=== PATIENT | male | born 1955 ===

== ENCOUNTER 2024-07-07 10:44 | Inpatient (IN) | payer OTHER ==
[2024-07-07] MEDS ORDERED: Iopamidol 370 76% 100 ML VIAL ONE (11:12)
[2024-07-07 11:24] LABS: #Basophils 0.05 10x3/uL (0.0-0.2); %Basophils 0.9 % (0.0-1.0); %Lymphocytes 25.4 % (21.0-51.0); %Neutrophils 50.5 % (42.0-75.0); Hematocrit 37.8 % (42.0-52.0); Hemoglobin 12.5 g/dL (14.0-18.0); Mean Corpuscular HGB CONC 33.1 g/dL (32.0-36.0); Mean Corpuscular Hemoglobin 30.9 pg (27.0-31.0); Mean Corpuscular Volume 93.3 fL (78.0-98.0); Mean Platelet Volume 8.4 fL (7.4-10.4); Platelet Count 233 10x3/uL (130-400); RBC Distribution Width 13.8 % (11.5-14.5); Red Blood Cell (RBC) Count 4.05 mill/uL (4.70-6.10)
[2024-07-07] MEDS ORDERED: Aspirin Chewable 81 MG TAB ONE (11:44)
[2024-07-07 11:47] LABS: Troponin I Less than 0.010 ng/mL (< 0.028)
[2024-07-07 11:49] LABS: ALT (SGPT) 10 U/L (Less than 45); AST (SGOT) 19 U/L (11-34); Albumin 2.8 g/dL (3.1-4.5); Alkaline Phosphatase 75 U/L (40-110); Anion Gap 11 mmol/L (10-20); BUN (Urea Nitrogen) 21 mg/dL (8.4-25.7); Bilirubin, Total 0.3 mg/dL (0.3-1.2); Calc. Creatinine Clearance 0 mL/min (70-130); Carbon Dioxide 27 mmol/L (23-31); Chloride 103 mmol/L (98-107); Estimated GFR 100; Globulin 4.6 g/dL (2.4-3.5); Glucose 116 mg/dL (83-110); Lipase 160 U/L (8-78); Potassium 4.6 mmol/L (3.5-5.1); Protein, Total 7.4 g/dL (5.8-8.1); Sodium 136 mmol/L (136-145)
[2024-07-07] MEDS ORDERED: Cefepime 1 GM VIAL ONE (12:43)
[2024-07-07] MEDS ORDERED: Vancomycin 1 GM/200 ML (FROZEN) BAG ONE (12:43)
[2024-07-07] MEDS ORDERED: Sodium Chloride 0.9% 100 ML ONE (12:43)
[2024-07-07] MEDS ORDERED: Lidocaine 1% w/Epinephrine 1:100K 20 ML VIAL ONE (12:52)
[2024-07-07] MEDS ORDERED: Ondansetron PF 4 MG/2 ML Vial IVP PRN (14:04)
[2024-07-07] MEDS ORDERED: Ipratropium/Albuterol 3 ML NEB NEB PRN (14:13)
[2024-07-07] MEDS ORDERED: Ipratropium/Albuterol 3 ML NEB ONE (15:51)
[2024-07-07] MEDS ORDERED: Promethazine HCl 25 MG/ML VIAL IM PRN (16:18)
[2024-07-07] MEDS: Cefepime 1 GM in Sodium Chloride 0.9% 100 ML IVPB SCH (22:09)
[2024-07-07] MEDS: Famotidine 20 MG TAB PO SCH (22:10)
[2024-07-08 05:25] LABS: #Basophils 0.06 10x3/uL (0.0-0.2); %Basophils 0.8 % (0.0-1.0); %Eosinophils 2.6 % (0.0-10.0); %Lymphocytes 18.4 % (21.0-51.0); %Monocytes 11.2 % (0.0-10.0); %Neutrophils 66.7 % (42.0-75.0); Hematocrit 37.5 % (42.0-52.0); Hemoglobin 12.2 g/dL (14.0-18.0); Mean Corpuscular HGB CONC 32.5 g/dL (32.0-36.0); Mean Corpuscular Hemoglobin 30.4 pg (27.0-31.0); Mean Corpuscular Volume 93.5 fL (78.0-98.0); Mean Platelet Volume 8.7 fL (7.4-10.4); Platelet Count 251 10x3/uL (130-400); RBC Distribution Width 13.6 % (11.5-14.5); Red Blood Cell (RBC) Count 4.01 mill/uL (4.70-6.10)
[2024-07-08 05:47] LABS: Anion Gap 14 mmol/L (10-20); BUN (Urea Nitrogen) 18 mg/dL (8.4-25.7); Calc. Creatinine Clearance 0 mL/min (70-130); Carbon Dioxide 22 mmol/L (23-31); Chloride 103 mmol/L (98-107); Estimated GFR 105; Glucose 77 mg/dL (83-110); Potassium 4.3 mmol/L (3.5-5.1); Sodium 135 mmol/L (136-145)
[2024-07-08 08:02] VITALS: BMI 17.2
[2024-07-08] MEDS: LevoFLOXacin 500 mg/D5W 500 MG in Premix 1 BAG IVPB SCH (09:35)
[2024-07-08] MEDS: Ketorolac Tromethamine 30 MG (1 mL) VIAL IVP PRN (09:40)
[2024-07-08] MEDS: Enoxaparin 40 MG (0.4 mL) SYRINGE SC SCH (09:40)
[2024-07-08] MEDS: guaiFENesin ER 600 MG TAB PO SCH ×2 (09:57→21:42)
[2024-07-08] MEDS: Vancomycin 1.5 GRAM/300 ML BAG 1.5 GM in Premix 1 BAG IVPB SCH ×2 (11:14→23:13)
[2024-07-08] MEDS: Ipratropium/Albuterol 3 ML NEB NEB SCH ×2 (11:19→11:28)
[2024-07-08 12:32] VITALS: BMI 17.2
[2024-07-08] MEDS: Polyvinyl Alcohol 1.4%/Povidone 0.6% Opth Drops EA EYE SCH (19:03)
[2024-07-09 05:47] LABS: Vancomycin, Random 24.2 ug/mL (See Comment)
[2024-07-09] MEDS: Vancomycin 1 GM in Premix 1 BAG IVPB SCH (11:32)
[2024-07-09] MEDS: Cefepime 2 GM in Sodium Chloride 0.9% 100 ML IVPB SCH (16:29)
[2024-07-10] MEDS: Acetaminophen 325 MG TAB PO PRN (05:00)
[2024-07-10 05:58] LABS: Vancomycin, Random 26.8 ug/mL (See Comment)
[2024-07-10] MEDS: Ipratropium/Albuterol 3 ML NEB NEB PRN (18:20)
[2024-07-10] MEDS: traMADol HCl 50 MG TAB PO PRN (20:13)
[2024-07-10] MEDS ORDERED: Vancomycin (BATCH) 1.75 GM in Premix 1 BAG IVPB SCH (23:00)
[2024-07-11] MEDS: Cefepime 2 GM VIAL ONE (08:36)
[2024-07-11 09:28] LABS: #Basophils 0.04 10x3/uL (0.0-0.2); %Basophils 0.6 % (0.0-1.0); %Eosinophils 10.2 % (0.0-10.0); %Lymphocytes 17.7 % (21.0-51.0); %Monocytes 9.7 % (0.0-10.0); %Neutrophils 61.6 % (42.0-75.0); Hematocrit 35.6 % (42.0-52.0); Hemoglobin 11.7 g/dL (14.0-18.0); Mean Corpuscular HGB CONC 32.9 g/dL (32.0-36.0); Mean Corpuscular Hemoglobin 30.8 pg (27.0-31.0); Mean Corpuscular Volume 93.7 fL (78.0-98.0); Mean Platelet Volume 8.5 fL (7.4-10.4); Platelet Count 241 10x3/uL (130-400); RBC Distribution Width 13.7 % (11.5-14.5)
[2024-07-11 09:52] LABS: Anion Gap 10 mmol/L (10-20); BUN (Urea Nitrogen) 12 mg/dL (8.4-25.7); Calc. Creatinine Clearance 106 mL/min (70-130); Calcium 8.9 mg/dL (7.8-10.44); Carbon Dioxide 28 mmol/L (23-31); Chloride 104 mmol/L (98-107); Estimated GFR 106; Glucose 138 mg/dL (83-110); Sodium 138 mmol/L (136-145)
[2024-07-11 11:31] VITALS: BP 110/69; TEMP 96.4
== END 2024-07-11 15:02 | disposition home or self-care (01) | DRG 180 ==
LOC: ERS 10:44 → EEVIPCON 14:00 → ERHOLD 14:00 → SURG B 20:01
PROVIDERS: ADMIT Internal Medicine; ATTEND Internal Medicine
DX: D49.1 Neoplasm of unspecified behavior of respiratory system (principal); E43 Unspecified severe protein-calorie malnutrition; J18.9 Pneumonia, unspecified organism; J96.01 Acute respiratory failure with hypoxia; J93.12 Secondary spontaneous pneumothorax; Z68.1 Body mass index [BMI] 19.9 or less, adult; J47.9 Bronchiectasis, uncomplicated; M06.9 Rheumatoid arthritis, unspecified
CPT/HCPCS: 32554; 36415; 71045; 71260; 80048; 80053; 80202; 82565; 83690; 83880; 84484; 85025; 87040; 87081; 93005; 94640; 94760; 96365; 96366; 96368; J0692; J1650; J1885; J1956; J3370; J7620; Q9967